=== PATIENT | female | born 1995 | race Hispanic/Latino ===

== ENCOUNTER 2017-03-05 15:31 | Outpatient (CLI) | payer BC ==
[2017-03-05 16:14] VITALS: BP 112/71
== END 2017-03-05 16:48 | disposition home or self-care (01) ==
LOC: TRG 15:31
PROVIDERS: ATTEND Obstetrics & Gynecology
DX: O47.1 False labor at or after 37 completed weeks of gestation (principal); Z3A.39 39 weeks gestation of pregnancy
CPT/HCPCS: 59025